=== PATIENT | female | born 2000 | race Caucasian/White ===

== ENCOUNTER 2019-05-07 13:24 | Inpatient (IN) | payer BC ==
[2019-05-07] MEDS: LACTATED RINGER'S 1,000 ML IV (21:18)
[2019-05-07] MEDS: MAGNESIUM SULFATE 4 GM/100 ML 100 ML IV (21:21)
[2019-05-07] MEDS: BETAMET NA PHOS/AC(6 MG/ML) 2 ML INJ SYG IM (21:35)
[2019-05-07] MEDS: MAGNESIUM SULFATE 20 GM/500 ML 500 ML IV (21:56)
[2019-05-08 01:04] LABS: MAGNESIUM 4.1 mg/dl (1.7-2.5)
[2019-05-08 07:22] LABS: MAGNESIUM 4.8 mg/dl (1.7-2.5)
[2019-05-08] MEDS: FERROUS SULFATE (EC) 325 MG TAB PO (08:16)
[2019-05-08] MEDS: PRENATAL VITAMIN PO (08:16)
[2019-05-08] MEDS: MAGNESIUM SULFATE 20 GM/500 ML 500 ML IV ×2 (08:18→19:48)
[2019-05-08] MEDS: LACTATED RINGER'S 1,000 ML IV ×2 (11:52→12:53)
[2019-05-08 12:37] LABS: MAGNESIUM 4.7 mg/dl (1.7-2.5)
[2019-05-08 18:33] LABS: MAGNESIUM 4.5 mg/dl (1.7-2.5)
[2019-05-08] MEDS: BETAMET NA PHOS/AC(6 MG/ML) 2 ML INJ SYG IM (21:46)
[2019-05-09] MEDS: LACTATED RINGER'S 1,000 ML IV (00:18)
[2019-05-09 00:57] LABS: MAGNESIUM 4.6 mg/dl (1.7-2.5)
[2019-05-09] MEDS: MAGNESIUM SULFATE 20 GM/500 ML 500 ML IV (07:00)
[2019-05-09 07:14] LABS: MAGNESIUM 4.7 mg/dl (1.7-2.5)
[2019-05-09] MEDS: PRENATAL VITAMIN PO (10:20)
[2019-05-09] MEDS: FERROUS SULFATE (EC) 325 MG TAB PO (10:20)
== END 2019-05-09 19:50 | disposition home or self-care (01) | DRG 832 ==
LOC: OBT 13:24 → L-D 13:26 → OBT 16:30 → L-D 16:30
PROVIDERS: Obstetrics & Gynecology
DX: O60.03 Preterm labor without delivery, third trimester (principal); O26.873 Cervical shortening, third trimester; O30.003 Twin pregnancy, unspecified number of placenta and unspecified number of amniotic sacs, third trimester; Z3A.29 29 weeks gestation of pregnancy
CPT/HCPCS: 76815; 76817; 76818; 83735

== ENCOUNTER 2019-07-08 15:17 | Inpatient (IN) | payer BC ==
[2019-07-08] MEDS ORDERED: METHYLERGONOVINE 0.2 MG INJ IM (17:00)
[2019-07-08] MEDS ORDERED: MISOPROSTOL 200 MCG TAB PR (17:00)
[2019-07-08] MEDS ORDERED: OXYTOCIN 30 UNITS/LR 500 ML IV (17:00)
[2019-07-08] MEDS ORDERED: CARBOPROST 250 MCG INJ IM (17:00)
[2019-07-08] MEDS: LACTATED RINGER'S 1,000 ML IV (22:35)
[2019-07-09] MEDS: LACTATED RINGER'S 1,000 ML IV ×3 (02:44→19:56)
[2019-07-09] MEDS ORDERED: LACTATED RINGER'S 1,000 ML IV ×2 (04:20)
[2019-07-09] MEDS ORDERED: OXYTOCIN 30 UNITS/LR 500 ML IV ×4 (04:30→21:52)
[2019-07-09] MEDS ORDERED: BUTORPHANOL 2 MG INJ IV (04:30)
[2019-07-09] MEDS ORDERED: MISOPROSTOL 200 MCG TAB PR (04:30)
[2019-07-09] MEDS ORDERED: METHYLERGONOVINE 0.2 MG INJ IM (04:30)
[2019-07-09] MEDS ORDERED: IBUPROFEN 600 MG TAB PO (04:30)
[2019-07-09] MEDS ORDERED: LIDOCAINE 1% (MPF) 30 ML INJ INJ (04:30)
[2019-07-09] MEDS ORDERED: CARBOPROST 250 MCG INJ IM (04:30)
[2019-07-09] MEDS: CITRIC ACID/NA CITRATE 30 ML CUP PO (20:27)
[2019-07-09] MEDS ORDERED: METOCLOPRAMIDE 10 MG INJ (20:39)
[2019-07-09] MEDS ORDERED: KETOROLAC 30 MG INJ (20:39)
[2019-07-09] MEDS ORDERED: morphine SULFATE/PF (10 MG/10 ML) INJ (20:39)
[2019-07-09] MEDS ORDERED: FENTAnyl 50 MCG/ML VIAL (21:16)
[2019-07-09] MEDS ORDERED: ONDANSETRON 4 MG INJ (21:45)
[2019-07-09] MEDS ORDERED: EPHEDrine 25 MG/5 ML SYG (21:48)
[2019-07-09] MEDS: CEFAZOLIN 2 GM/50 ML (PMX) 50 ML IVPB (23:04)
[2019-07-09] MEDS: OXYTOCIN 30 UNITS/LR 500 ML IV ×2 (23:05→23:33)
[2019-07-10] MEDS ORDERED: DIPHENHYDRAMINE 50 MG INJ IV
[2019-07-10] MEDS ORDERED: morphine 2 MG INJ IV ×5
[2019-07-10] MEDS ORDERED: NALOXONE (0.4 MG/ML) INJ IV
[2019-07-10] MEDS ORDERED: ONDANSETRON 4 MG INJ IV
[2019-07-10] MEDS ORDERED: OXYTOCIN 30 UNITS/LR 500 ML IV (01:00)
[2019-07-10] MEDS ORDERED: METHYLERGONOVINE 0.2 MG INJ IM (01:00)
[2019-07-10] MEDS ORDERED: MISOPROSTOL 200 MCG TAB PR (01:00)
[2019-07-10] MEDS ORDERED: MAGNESIUM HYDROXIDE 30ML CUP PO (01:00)
[2019-07-10] MEDS ORDERED: CARBOPROST 250 MCG INJ IM (01:00)
[2019-07-10] MEDS ORDERED: METHYLERGONOVINE 0.2 MG TAB PO (01:00)
[2019-07-10] MEDS: ONDANSETRON 4 MG INJ IV (01:37)
[2019-07-10] MEDS: OXYTOCIN 30 UNITS/LR 500 ML IV (02:20)
[2019-07-10] MEDS: morphine 2 MG INJ IV (02:40)
[2019-07-10] MEDS: KETOROLAC 30 MG INJ IV (06:58)
[2019-07-10] MEDS: LANOLIN HPA 1 PKT TOP (06:59)
[2019-07-10] MEDS: SENNA/DOCUSATE NA (8.6MG/50MG) TAB PO (10:38)
[2019-07-10] MEDS ORDERED: DIPHTH/TET/ACEL PERTUSS (ADULT) 0.5 ML VIAL IM* (11:00)
[2019-07-10] MEDS: DEXTROSE 5%-LR 1,000 ML IV ×3 (13:06→17:45)
[2019-07-10] MEDS: LACTATED RINGER'S 500 ML IV (13:22)
[2019-07-10] MEDS: OXYCODONE/ACETAMINOPHEN (5/325) TAB PO (22:16)
[2019-07-10] MEDS: IBUPROFEN 800 MG TAB PO (23:48)
[2019-07-10] MEDS: LACTATED RINGER'S 1,000 ML IV (23:48)
[2019-07-11] MEDS: PIPER-TAZO 3.375 GM IV (PMX) 100 ML IVPB ×4 (00:17→22:51)
[2019-07-11] MEDS: SENNA/DOCUSATE NA (8.6MG/50MG) TAB PO ×3 (00:33→20:07)
[2019-07-11] MEDS ORDERED: IBUPROFEN 800 MG TAB PO (06:00)
[2019-07-11] MEDS: HYDROCODONE/APAP (5/325) TAB PO ×3 (07:48→22:00)
[2019-07-11] MEDS: IBUPROFEN 800 MG TAB PO ×3 (07:48→22:58)
[2019-07-11] MEDS: LACTATED RINGER'S 1,000 ML IV ×3 (07:50→23:30)
[2019-07-11] MEDS: OXYCODONE/ACETAMINOPHEN (5/325) TAB PO (20:07)
[2019-07-11] MEDS: DEXTROSE 5%-LR 1,000 ML IV ×3 (23:52)
[2019-07-12] MEDS: DEXTROSE 5%-LR 1,000 ML IV (00:52)
[2019-07-12] MEDS: HYDROCODONE/APAP (5/325) TAB PO ×3 (04:33→19:30)
[2019-07-12] MEDS: PIPER-TAZO 3.375 GM IV (PMX) 100 ML IVPB (06:02)
[2019-07-12] MEDS: LACTATED RINGER'S 1,000 ML IV (06:02)
[2019-07-12] MEDS: IBUPROFEN 800 MG TAB PO ×3 (06:02→21:59)
[2019-07-12] MEDS ORDERED: MEASLES,MUMPS,RUBELLA VACCINE INJ SC* (09:00)
[2019-07-12] MEDS: SENNA/DOCUSATE NA (8.6MG/50MG) TAB PO ×2 (09:47→21:14)
[2019-07-12] MEDS: LABETALOL 200 MG TAB PO ×2 (11:24→21:16)
[2019-07-12] MEDS: DIPHTH/TET/ACEL PERTUSS (ADULT) 0.5 ML VIAL IM* (11:24)
[2019-07-12] MEDS: LANOLIN HPA 1 PKT TOP (12:17)
[2019-07-13] MEDS: HYDROCODONE/APAP (5/325) TAB PO ×2 (00:53→08:45)
[2019-07-13] MEDS: IBUPROFEN 800 MG TAB PO (05:33)
[2019-07-13] MEDS: SENNA/DOCUSATE NA (8.6MG/50MG) TAB PO (08:45)
[2019-07-13] MEDS: LABETALOL 200 MG TAB PO (08:45)
[2019-07-13] MEDS: MEASLES,MUMPS,RUBELLA VACCINE INJ SC* (10:21)
== END 2019-07-13 13:25 | disposition home or self-care (01) | DRG 788 ==
LOC: OBT 15:17 → PP1 07-10 00:46 → L-D 15:19 → OBT 16:43 → L-D 16:43
PROC: 10D00Z1 Extraction of Products of Conception, Low, Open Approach (ICD-10-PCS; principal; 2019-07-09 19:30)
PROC: 10907ZC Drainage of Amniotic Fluid, Therapeutic from Products of Conception, Via Natural or Artificial Opening (ICD-10-PCS; 2019-07-09 19:30)
DX: O30.003 Twin pregnancy, unspecified number of placenta and unspecified number of amniotic sacs, third trimester (principal); Z37.2 Twins, both liveborn; O32.1XX1 Maternal care for breech presentation, fetus 1; Z3A.37 37 weeks gestation of pregnancy
CPT/HCPCS: 76818; 80053; 81001; 81003; 82570; 83615; 84560; 85025; 85384; 85610; 85730; 86592; 86850; 86900; 86901; 87040-91; 87086; 87340; 90715; 99464